=== PATIENT | male | born 1975 | race Caucasian/White ===

== ENCOUNTER 2016-09-10 15:29 | Emergency (ER) | payer OTHER ==
[2016-09-10] MEDS: DIPH,PERTUSS(ACELL),TET VAC/PF 0.5 ML DISP.SYRIN IM ONE (15:50)
[2016-09-10] MEDS: BUPIVACAINE HCL/PF 5 MG/ML 10ML VIAL IJ ONE (17:00)
[2016-09-10] MEDS: KETOROLAC TROMETHAMINE 60 MG/2 ML VIAL IM ONE (17:19)
[2016-09-10] MEDS: ORPHENADRINE CITRATE 60 MG/2ML IM ONE (17:19)
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
[2016-09-10 17:43] VITALS: BP 113/64
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
--- NOTE | 2016-09-10 20:24 | Diagnostic Imaging Report ---
[facility] [address] [facility] [address] [place] [address]. [id number] Report Submission Date: Sep 10, 2016 4:27:03 PM CDT Patient Study Name: LUZ ELENA CHAMBERLAIN Date: Sep 10, 2016 4:10:07 PM CDT Modality Type: CT\SR Gender: M Description: CT C-SPINE W/O CONTRAS : 75 Institution: [facility] Physician: ASHUTOSH JARVIS - PINKY Computed tomography of the cervical spine without contrast History: Head injury Findings: Transverse cervical spine sections are obtained without contrast. Mild C4/C5, C5/C6, and C6/C7 degenerative disc disease is observed. Right C7/T1 facet arthropathy is present. There is no fracture, subluxation, or paraspinal swelling. Impression: Cervical spondylosis without fracture. Electronically signed on Sep 10, 2016 4:27:03 PM CDT by: Marito CARR
--- NOTE | 2016-09-10 20:24 | Diagnostic Imaging Report ---
[facility] [address] [facility] [address] [id number] Report Submission Date: Sep 10, 2016 4:29:22 PM CDT Patient Study Name: LUZ ELENA CHAMBERLAIN Date: Sep 10, 2016 4:04:55 PM CDT Modality Type: CT\SR Gender: M Description: CT BRAIN W/O CONTRAST : 75 Institution: [facility] Physician: ASHUTOSH JARVIS Computed tomography of the head without contrast History: Head laceration, dizziness, headache Findings: Transverse brain sections are obtained without contrast revealing a frontal scalp contusion without intracranial hemorrhage. Ventricles and sulci are normal in size. Jones white differentiation is intact. The skull is intact. The right frontal sinus is nearly opacified. Mucosal thickening is present in bilateral ethmoid air cells. A mildly displaced right nasal fracture is present. Impression: 1. Mildly displaced right nasal fracture. 2. Sinusitis. 3. Frontal scalp contusion. Electronically signed on Sep 10, 2016 4:29:22 PM CDT by: Marito CARR
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
== END 2016-09-10 17:38 | disposition home or self-care (01) ==
LOC: ED 15:29
DX: S02.2XXA Fracture of nasal bones, initial encounter for closed fracture (principal); S01.112A Laceration without foreign body of left eyelid and periocular area, initial encounter; Y04.2XXA Assault by strike against or bumped into by another person, initial encounter; Y92.89 Other specified places as the place of occurrence of the external cause
CPT/HCPCS: 12001; 70450; 70486; 71250; 72125; 73562; 74176; 90471; 90715; 96372; 99283; J1885; J3490; J2360